=== PATIENT | female | born 1965 | race African-American/Black ===

== ENCOUNTER 2018-06-02 14:11 | Emergency (ER) | payer OTHER ==
[~2018-06-02] VITALS: Ht 165.1 cm; Wt 100.0 kg
[~2018-06-02 14:11] MED LIST: AMLODIPINE5 MG PO; AMOXICILLIN/CL875 MG PO; ANTIVERT12.5 MG PO; CIPRO500 MG PO; FLEXERIL PO; FLONASE NASAL50 MCG; HYDROCHLOROTH12.5 MG PO; KEFLEX500 MG OR; LOSARTAN POTASS50 MG PO; MICRO-K10 ME1 PO; NO MEDS; ROBITUSSIN AC10 ML PO; Robitussin AC OR; ULTRAM50 M1 PO
[2018-06-02 15:40] VITALS: BP 117/59
== END 2018-06-02 15:40 | disposition home or self-care (01) | DRG 305 ==
LOC: ED 14:11
DX: I10 Essential (primary) hypertension (principal); E78.5 Hyperlipidemia, unspecified

== ENCOUNTER 2018-06-07 20:39 | Emergency (ER) | payer OTHER ==
[~2018-06-07] VITALS: Ht 165.1 cm; Wt 111.0 kg
[2018-06-07] MEDS ORDERED: FLEXERIL5 MG PO (23:12)
[2018-06-07] MEDS ORDERED: VOLTAREN - GENE75 MG PO (23:12)
[2018-06-07 23:34] VITALS: BP 133/94
== END 2018-06-07 23:34 | disposition home or self-care (01) | DRG 552 ==
LOC: ED 20:39
DX: S16.1XXA Strain of muscle, fascia and tendon at neck level, initial encounter (principal); M46.92 Unspecified inflammatory spondylopathy, cervical region; I10 Essential (primary) hypertension; X58.XXXA Exposure to other specified factors, initial encounter

== ENCOUNTER 2019-11-27 10:30 | Day surgery (SDC) | payer SELFPAY ==
[~2019-11-27 10:30] MED LIST changes: +ATORVASTATIN CA20 MG PO; +D3 HIGH POT1000 UNIT PO; +DITROPAN5 MG/TA1 PO; +DOCUSATE CAL240 MG PO; +FAMOTIDINE20 M1 PO; +FLEXERIL5 MG PO; +GABAPENTIN100 MG PO; +LORATADINE10 M1 PO; +MICARDIS H80 MG/25 M PO; +VOLTAREN - GENE75 MG PO
[2019-11-27 13:34] VITALS: BP 106/71
== END 2019-11-27 13:40 | disposition home or self-care (01) | DRG 395 ==
LOC: ENDO 10:30 → ORM 15:30
PROVIDERS: ATTEND Internal Medicine Gastroenterology
PROC: 0DBN8ZX Excision of Sigmoid Colon, Via Natural or Artificial Opening Endoscopic, Diagnostic (ICD-10-PCS; principal; 2019-11-27)
DX: K63.5 Polyp of colon (principal); K59.09 Other constipation; K64.4 Residual hemorrhoidal skin tags; K64.8 Other hemorrhoids; I10 Essential (primary) hypertension; Z20.828 Contact with and (suspected) exposure to other viral communicable diseases

== ENCOUNTER 2023-08-14 01:38 | Emergency (ER) | payer SELFPAY ==
[~2023-08-14] VITALS: Ht 165.1 cm; Wt 112.0 kg
[2023-08-14] MEDS ORDERED: AMOXICILLIN & POT CLAVULANATE 500 MG/TAB PO ONE (02:15)
[2023-08-14] MEDS ORDERED: AMOX/K CLAV875 M1 PO ×2 (03:14→03:53)
[2023-08-14 03:19] VITALS: BP 131/83
[2023-08-14] MEDS ORDERED: COZAAR25 MG PO (05:38)
== END 2023-08-14 03:19 | disposition home or self-care (01) | DRG 603 ==
LOC: ED 01:38
DX: L03.011 Cellulitis of right finger (principal); I10 Essential (primary) hypertension; E78.5 Hyperlipidemia, unspecified